=== PATIENT | female | born 1940 | race African-American/Black ===

== ENCOUNTER 2018-05-04 00:23 | Emergency (ER) | payer OTHER ==
[~2018-05-04] VITALS: Ht 160 cm; Wt 137.3 kg
[~2018-05-04 00:23] MED LIST: BAYER ASPIRIN325 M1 PO; CIPRO500 MG PO; FLAGYL500 MG PO; HYDROCHLOROTHIA25 MG PO; ISOSORBIDE MONO60 MG PO; LISINOPRIL20 MG PO; NEXIUM20 MG PO; NITROSTAT0.4 MG SL; PROVENTIL,2.5 MG/3 M IH; VITAMIN D1000 INTUN PO; XARELTO20 MG PO
[2018-05-04] MEDS ORDERED: GABAPENTIN300 MG PO (01:24)
[2018-05-04 01:55] VITALS: BP 178/92
== END 2018-05-04 01:56 | disposition home or self-care (01) ==
LOC: EME 00:23
DX: G62.9 Polyneuropathy, unspecified (principal); J43.9 Emphysema, unspecified; I50.9 Heart failure, unspecified; K21.9 Gastro-esophageal reflux disease without esophagitis; E78.5 Hyperlipidemia, unspecified; J45.909 Unspecified asthma, uncomplicated; I34.0 Nonrheumatic mitral (valve) insufficiency; M48.00 Spinal stenosis, site unspecified; F32.9 Major depressive disorder, single episode, unspecified; I25.2 Old myocardial infarction; Z79.82 Long term (current) use of aspirin; Z85.3 Personal history of malignant neoplasm of breast; Z88.5 Allergy status to narcotic agent; Z88.6 Allergy status to analgesic agent; Z88.8 Allergy status to other drugs, medicaments and biological substances
CPT/HCPCS: 99281; 99284; J1885